=== PATIENT | male | born 1990 | race Caucasian/White ===

== ENCOUNTER 2017-01-18 19:19 | Emergency (ER) | payer BC ==
[~2017-01-18] VITALS: Ht 175.2 cm; Wt 87.1 kg
[~2017-01-18 19:19] MED LIST: ADDERALL30 MG PO; AMOXICILLIN500 MG PO; EES400 MG PO; IBU-6600 MG PO; KEFLEX500 MG PO; MOTRIN800 MG PO; NAPROSYN500 MG PO; NORFLEX100 MG PO; VICODIN 500 MG-1 TAB PO; ZOFRAN ODT4 MG SL; ZOFRAN4 MG PO
[2017-01-18] MEDS ORDERED: NAPROSYN500 MG PO (19:33)
[2017-01-18] MEDS ORDERED: 'PARAFON FORTE500 M1 PO (19:33)
== END 2017-01-18 20:19 | disposition home or self-care (01) ==
LOC: ED 19:19
DX: M54.5 Low back pain (principal); R03.0 Elevated blood-pressure reading, without diagnosis of hypertension

== ENCOUNTER 2017-10-28 23:30 | Emergency (ER) | payer BC ==
[~2017-10-28] VITALS: Ht 175.2 cm; Wt 83.9 kg
[~2017-10-28 23:30] MED LIST changes: +'PARAFON FORTE500 M1 PO
[2017-10-29] MEDS ORDERED: ZOFRAN ODT4 MG SL (01:20)
[2017-10-29] MEDS ORDERED: Motrin,Rufen800 MG PO (01:20)
== END 2017-10-29 01:35 | disposition home or self-care (01) ==
LOC: ED 23:30
DX: B34.9 Viral infection, unspecified (principal)

== ENCOUNTER 2018-01-30 20:02 | Emergency (ER) | payer BC ==
[~2018-01-30] VITALS: Ht 175.2 cm; Wt 86.2 kg
[~2018-01-30 20:02] MED LIST changes: +Motrin,Rufen800 MG PO
[2018-01-30] MEDS ORDERED: TYLENOL325 M1 PO (20:57)
[2018-01-30] MEDS ORDERED: IBU800 MG PO (20:57)
== END 2018-01-30 21:30 | disposition home or self-care (01) ==
LOC: ED 20:02
DX: S82.391A Other fracture of lower end of right tibia, initial encounter for closed fracture (principal); F10.10 Alcohol abuse, uncomplicated; Z79.899 Other long term (current) drug therapy; X58.XXXA Exposure to other specified factors, initial encounter; Y93.89 Activity, other specified; Y92.89 Other specified places as the place of occurrence of the external cause; Y99.8 Other external cause status

== ENCOUNTER 2020-05-21 20:15 | Emergency (ER) | payer BC ==
[~2020-05-21] VITALS: Ht 175.2 cm; Wt 90.7 kg
[~2020-05-21 20:15] MED LIST changes: +IBU800 MG PO; +TYLENOL325 M1 PO
[2020-05-21] MEDS ORDERED: CLEOCIN HCL150 MG PO (20:51)
[2020-05-21] MEDS ORDERED: IBU800 MG PO (20:51)
== END 2020-05-21 21:31 | disposition home or self-care (01) ==
LOC: ED 20:15
DX: K04.7 Periapical abscess without sinus (principal)

== ENCOUNTER 2025-01-22 14:40 | Emergency (ER) | payer BC ==
[~2025-01-22] VITALS: Ht 175.2 cm; Wt 104.3 kg
[~2025-01-22 14:40] MED LIST changes: +CLEOCIN HCL150 MG PO
[2025-01-22] MEDS ORDERED: MORPHINE Sulfate 2 MG/ML SYR IM ONE (15:00)
== END 2025-01-22 17:46 | disposition short-term general hospital (02) ==
LOC: ED 14:40
DX: S02.40CA Maxillary fracture, right side, initial encounter for closed fracture (principal); S02.841A Fracture of lateral orbital wall, right side, initial encounter for closed fracture; S02.31XA Fracture of orbital floor, right side, initial encounter for closed fracture; V89.2XXA Person injured in unspecified motor-vehicle accident, traffic, initial encounter; Y93.89 Activity, other specified; Y92.89 Other specified places as the place of occurrence of the external cause; Y99.8 Other external cause status